=== PATIENT | female | born 1935 | race Hispanic/Latino ===

== ENCOUNTER 2018-09-03 02:20 | Observation (INO) | payer MEDICARE ==
[~2018-09-03] VITALS: Ht 154.9 cm; Wt 41.4 kg
[2018-09-03] VITALS (12 sets, daily range): BP systolic 132–196; BP diastolic 56–85
[~2018-09-03 02:20] MED LIST: ADULT ASPIRIN81 MG PO; CALCIUM600 M1 PO; CELEXA10 MG PO; HYDROCODON-ACE1 EA11 PO; IBUPROFEN400 MG PO; IRON325 M1 PO; NEXIUM40 MG PO; Z.0.AMBIEN5 MG PO; Z.0.FAMOTIDINE20 MG PO; Z.0.FOSAMAX70 MG PO; Z.0.HYDROCHLOROTHIA2 PO; Z.0.LISINOPRIL10 MG PO; Z.0.LOMOTIL TABLET1 PO; Z.0.ZOCOR80 MG PO; [UNRECOGNIZED DRUG - OTHER] PO
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
[2018-09-03] MEDS ORDERED: HYDROCODON-ACE1 EAC9 PO (04:13)
[2018-09-03] MEDS ORDERED: CIPRO500 MG PO (04:13)
[2018-09-03] MEDS ORDERED: ARICEPT5 MG PO (04:13)
[2018-09-03] MEDS: DEXTROSE 5%/0.45% SOD CHL 1,000 ML IV SCH (04:35)
[2018-09-03] MEDS ORDERED: HYDRALAZINE HCL 20 MG/ML VIAL IV PRN (05:15)
[2018-09-03 06:03] LABS: BASOPHILS % 0.2 % (0.0-1.0); EOSINOPHILS # (AUTO) 0.1 (0.0-0.4); EOSINOPHILS % 1.4 % (0.0-6.0); HEMATOCRIT 23.4 % (34.2-44.1); HEMOGLOBIN 7.9 g/dL (12.0-16.0); LYMPHOCYTES # (AUTO) 0.8 (1.0-3.2); LYMPHOCYTES % 14.8 % (18.0-39.1); MEAN CORPUSCULAR HEMOGLOBIN 30.2 pg (28-32); MEAN CORPUSCULAR HGB CONC 33.8 g/dL (31-35); MEAN CORPUSCULAR VOLUME 89.3 fL (81-99); MONOCYTES # (AUTO) 0.6 (0.2-0.8); MONOCYTES % 11.4 % (4.4-11.3); NEUTROPHILS # (AUTO) 3.6 (2.1-6.9); NEUTROPHILS % 71.6 % (38.7-80.0); PLATELET COUNT 76 x10e3/uL (140-360); RED BLOOD COUNT 2.62 x10e6/uL (3.6-5.1); RED CELL DISTRIBUTION WIDTH 14.6 % (11.7-14.4)
[2018-09-03] MEDS: HYDROCODONE/APAP 5MG-325MG TAB PO PRN ×3 (06:06→21:29)
[2018-09-03 06:36] LABS: ALBUMIN 3.2 g/dL (3.5-5.0); ANION GAP 9.6 mmol/L (8-16); CALCIUM 7.8 mg/dL (8.4-10.2); CREATININE, SERUM 1.26 mg/dL (0.57-1.11); POTASSIUM 4.6 mmol/L (3.5-5.1)
[2018-09-03 06:54] LABS: MAGNESIUM 1.9 MG/DL (1.3-2.1); PHOSPHORUS 2.6 MG/DL (2.3-4.7)
--- NOTE | 2018-09-03 07:42 | NUR ---
notified se vaughn about pt hgb of this am of 7.9 no orders received
[2018-09-03] MEDS: ASCORBIC ACID 500 MG TAB PO SCH ×2 (08:36→16:43)
[2018-09-03] MEDS: CITALOPRAM HYDROBROMIDE 20 MG TAB PO SCH (08:36)
[2018-09-03] MEDS: FERROUS SULFATE 325 MG TAB PO SCH (08:36)
[2018-09-03] MEDS: FAMOTIDINE 20 MG TAB PO SCH ×2 (08:36→16:43)
[2018-09-03] MEDS ORDERED: NON-FORMULARY MEDICATION (Citalopram Hydrobromide (Celexa) 10 MG) PO SCH (09:00)
[2018-09-03] MEDS: ACETAMINOPHEN 325 MG TAB PO PRN (10:14)
--- NOTE | 2018-09-03 10:30 | NUR ---
WOUND CARE CONSULTATION: THIS IS AN 82 YEAR OLD FEMALE PATIENT ADMITTED TO [facility] FOR S/P FALL, ANEMIA, AND ACUTE RENAL FAILURE. HEAD TO TOE SKIN ASSESSMENT PERFORMED. PATIENT HAS A LARGE BRUISE NOTED TO THE RIGHT HIP THAT EXTENDS TO THE BACK OF THE RIGHT LEG ALL THE WAY TO THE POSTERIOR PORTION OF THE RIGHT KNEE THAT PATIENT SUSTAINED FROM RECENT FALL; SKIN INTACT; NO OPEN AREAS. PATIENT HAS A BRUISE NOTED TO THE RIGHT SIDE OF THE BACK OF HER HEAD; NO OPEN AREAS. PATIENT HAS A BRUISE NOTE TO HER LEFT GREAT TOE THAT EXTENDS TO A PORTION OF THE LEFT DORSAL FOOT FROM A RECENT INGROWN TOENAIL BEING REMOVED PRIOR TO ADMIT; SKIN INTACT; NO OPEN AREAS. PATIENT HAS AN AREA OF 100% BLANCHABLE REDNESS NOTED TO THE COCCYX MEASURING 1.5X2CM, SKIN INTACT. LABS: WBC5.07 ALB3.2 TOTAL PROTEIN 6.4 RECOMMENDATIONS: -CONT THE ALTERNATING PRESSURE RELIEF MATTRESS. -APPLY BILATERAL HEEL PROTECTORS WITH PILLOW SUSPENSION. -TURN EVERY 2 HOURS AND PRN. -NURSING TO CLEAN COCCYX AREA OF BLANCHABLE REDNESS WITH NORMAL SALINE, PAT DRY, APPLY VENELEX AND ALLEVYN FOAM DRESSING; CHANGE DAILY AND PRN. THANK YOU FOR THIS WOUND CARE CONSULTATION. Addendum: 09/03/18 at 1039 by Catherine Marquez RN Amended: Links added.
[2018-09-03] MEDS ORDERED: BALSAM PERU/CASTOR OIL 5 GM OINT...G. TP PRN (11:00)
--- NOTE | 2018-09-03 11:12 | NUR ---
NOTIFIED NAVAL MARINE ENGINEER ROSALVA ABOUT PT C/O OF SEVERE LEFT CALF PAIN NEW ORDERS RECEIVED
[2018-09-03 11:15] LABS: BILIRUBIN,URINE NEGATIVE (NEGATIVE); CLARITY,URINE SL CLOUDY (CLEAR); COLOR,URINE YELLOW (YELLOW); KETONES,URINE NEGATIVE (NEGATIVE); LEUKOCYTE ESTERASE ,URINE NEGATIVE (NEGATIVE); NITRITE,URINE NEGATIVE (NEGATIVE); PROTEIN,URINE DIPSTICK NEGATIVE (NEGATIVE); URINE UROBILINOGEN 0.2 mg/dL (0.2 - 1)
[2018-09-03] MEDS ORDERED: CYCLOBENZAPRINE HCL 10 MG TAB PO ONE (11:20)
[2018-09-03 11:48] LABS: RBC,URINE 0-5 /HPF (0-5); WBC,URINE (MAN) 0-5 /HPF (0-5)
[2018-09-03 11:49] LABS: BACTERIA,URINE RARE /HPF; EPITHELIAL CELLS,URINE RARE /LPF
--- NOTE | 2018-09-03 12:02 | Consultation ---
DATE OF CONSULTATION: 09/03/2018 CHIEF COMPLAINT: Right hip pain. HISTORY OF PRESENT ILLNESS: The patient is a frail 82-year-old lady, who lives at home with her daughter and son-in-law. She was going down some stairs three days ago. She stumbled on the last stair. She initially had some complaints of pain, but these increased over the next few days. Her daughter noted that she had a bruise in the right proximal thigh over the next few days. She felt that this needed to be further investigated and took her to an emergency room in [place], [place]. She was found to have some kidney abnormalities and was transferred to [facility] for admission. Orthopedic consultation was requested for right hip pain. PAST MEDICAL HISTORY: She has a history of dementia, depression, osteoporosis, and anemia. PAST SURGICAL HISTORY: Previous surgeries include a carpal tunnel release, hemorrhoid surgery, a , and a neck surgery. MEDICATIONS: See medication reconciliation list. ALLERGIES: PENICILLIN. SOCIAL HISTORY: She lives with her daughter and son-in-law. She is . She does not smoke or drink. Prior to the fall, she walked independently in the house. PHYSICAL EXAMINATION: She is awake and alert. She does not appear to be in any acute distress. She answers questions appropriately. She appears thin and somewhat frail. She has a large bruise over the lateral aspect of her right thigh and hip. She has mild discomfort with passive range of motion of her right hip. Distal neurovascular exam is normal. She has no tension signs. LABORATORY STUDIES: Multiple x-rays of the pelvis, right femur and cervical spine show some arthritic changes and osteoporosis, but no acute fracture. IMPRESSION: Contusion, right hip. At this point, the patient is admitted for some concerns about renal failure. I would suggest that from an orthopedic standpoint, she can be mobilized with physical therapy. I explained to her daughter that she would benefit from using a walker for the next week or two until the symptoms improved. We will hold off from additional studies until we see how she does with physical therapy. Thank you for the consultation. Kevin Alvarenga MD DR/SID /[id number]
--- NOTE | 2018-09-03 12:56 | Diagnostic Imaging Report ---
Exam: Brain MRI without IV contrast History: Trauma, fall, and lesion Comparison studies: Head CT . Technique: Sagittal and axial T2 FS, axial DWI, axial T2*GRE, axial T1 FLAIR and axial coronal T2 FLAIR. Intravenous contrast: None Findings: Scalp: Normal in signal. No masses. Bone marrow: Normal in signal intensity. Ventricles: Moderate compensatory dilatation.. No hydrocephalus. Extra axial spaces: No mass, no fluid collection. Parenchyma: There is moderate generalized brain volume loss with a bilateral frontoparietal predominance with disproportionate volume loss along the anteromedial temporal lobes an hippocampi. A few scattered and mildly confluent T2 FLAIR hyperintense foci in the supratentorial white matter in the justina are nonspecific but most compatible with chronic microvascular ischemic changes. No mass, hemorrhage or acute ischemia. Suprasellar region: No abnormalities. Craniocervical junction: Patent foramen magnum. No Chiari malformation. Vessels: Normal flow-voids in the arteries and sinuses. Incidental findings: Right lens or placement for previous cataract surgery. IMPRESSION: No acute intracranial abnormalities. Chronic findings: 1. Mild to moderate microvascular ischemic changes. 2. Moderate generalized volume loss with a parietotemporal predominance and disproportionate volume loss along the anteromedial temporal lobes and hippocampi. Findings can be seen with Alzheimer's/dementia spectrum in the appropriate clinical setting. Signed by: Dr. Kevin Green M.D. on 09/03/2018 12:53 PM
--- NOTE | 2018-09-03 15:43 | NUR ---
CM SPOKE TO ANNE-MARIE, CHARGE NURSE REGARDING PATIENT DISCHARGE PLAN. PER MDR ROUNDS, PATIENT AMBULATORY PRIOR TO ADMISSION AND ABLE TO WITHSTAND 3 HOURS OF REHAB. ONCE PATIENT IS CLEARED MEDICALLY MD TO INITIATE INPATIENT REHAB EVALUATION. PATIENT WITH MCR A&B. INPATIENT REHAB RECOMMENDED BY PHYSICAL THERAPY.
--- NOTE | 2018-09-03 15:59 | NUR ---
ORTHOSTATIC V/S LAYING 175/72 57 HR SITTING 166/72 STANDING 132/60
--- NOTE | 2018-09-03 16:57 | NUR ---
Nutrition Intervention Note RD Recommendation(s) for Physician: -Rec to liberalize diet to regular Phos and K WNL, no need for renal restriction -Rec to downgrade diet texture to mechanical soft due to missing teeth -Rec Ensure Enlive BID to increase protein-calorie intake Plan of Care: RD following, monitoring for tolerance and adequacy, ONS rec Nutrition reason for involvement: MD consult underweight RD Assessment 09/03 - Visited pt in the room. Cvqbuqtwxtfrt-qs-wzr on bedside, who is unable to provide much history about pt. 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 Noted missing teeth. Per PCT, pt was eating well with >50% intake during lunch. Reviewed labs - K and Phos WNL. Pt doesn't to be on renal diet. Rec to liberalize to regular diet with Ensure Enlive BID. Will revisit tomorrow to see if I can get more information from the other family members. Principal Problems/Diagnoses: S/p fall, anemia, acute renal failure PMH: dementia, depression, osteoporosis, and anemia GI: abdomen soft, non-tender, round, flatus present Skin: skin intact Labs: (09/03) Na 133 L, BUN 38 H, Creatinine 1.26 H, Ca 7.8 L Meds: vitamin C, pepcid, dextrose Ht: 61in Wt: 91.19lb BMI: 17.2kg/m2 IBW: 105lb Malnutrition Evaluation (09/03/18) Unable to obtain hx. Will re-evaluate in the AM. Nutrition Prescription (Diet Order): renal diet Estimated Nutritional Needs: Calories: 1230 1435kcal(30-35kcal/kg/d) Weight used: CBW Protein: 41 62g(1-1.5g/kg/d) Weight used: CBW Diet Adequacy: Not meeting calorie needs, Meeting protein needs Diet Education Needs Assessment: Diet education not indicated. Nutrition Care Level: mod Nutrition Diagnosis: Underweight related to inadequate energy intake as evidenced by BMI at 17.2kg/m2. Goal: Patient will meet 75-100% of estimated needs by follow up Progress: Progressing Interventions: General healthful diet, Texture modified diet, Commercial beverage Monitoring/Evaluation: Total energy intake, Total protein intake, diet, Liquid Supplement, Weight change Signed: Zoey Nicole, MS, RD, LD
--- NOTE | 2018-09-03 20:20 | NUR ---
ORTHOSTATIC VITAL SIGNS SUPINE 168/70 P 54 SITTING 140/66 P 63 STANDING 132/56 P 61
[2018-09-03] MEDS: DONEPEZIL HCL 5 MG TAB PO SCH (21:25)
[2018-09-03] MEDS: SIMVASTATIN 80 MG TAB PO SCH (21:25)
[2018-09-04] VITALS (7 sets, daily range): BP systolic 134–172; BP diastolic 65–71
[2018-09-04] MEDS: DEXTROSE 5%/0.45% SOD CHL 1,000 ML IV SCH (01:07)
[2018-09-04] MEDS: ACETAMINOPHEN 325 MG TAB PO PRN (02:43)
[2018-09-04 03:49] LABS: BASOPHILS % 0.3 % (0.0-1.0); EOSINOPHILS % 1.3 % (0.0-6.0); HEMOGLOBIN 7.7 g/dL (12.0-16.0); LYMPHOCYTES # (AUTO) 0.8 (1.0-3.2); LYMPHOCYTES % 26.1 % (18.0-39.1); MEAN CORPUSCULAR HEMOGLOBIN 30.7 pg (28-32); MEAN CORPUSCULAR HGB CONC 33.8 g/dL (31-35); MEAN CORPUSCULAR VOLUME 90.8 fL (81-99); MONOCYTES # (AUTO) 0.4 (0.2-0.8); MONOCYTES % 11.1 % (4.4-11.3); NEUTROPHILS # (AUTO) 1.9 (2.1-6.9); NEUTROPHILS % 60.9 % (38.7-80.0); PLATELET COUNT 74 x10e3/uL (140-360); RED BLOOD COUNT 2.51 x10e6/uL (3.6-5.1); RED CELL DISTRIBUTION WIDTH 14.6 % (11.7-14.4)
[2018-09-04 03:52] LABS: HEMATOCRIT 22.8 % (34.2-44.1)
[2018-09-04 04:10] LABS: ANION GAP 10.5 mmol/L (8-16); CALCIUM 7.9 mg/dL (8.4-10.2); CREATININE, SERUM 1.19 mg/dL (0.57-1.11); POTASSIUM 4.5 mmol/L (3.5-5.1)
[2018-09-04] MEDS ORDERED: MORPHINE SULFATE 2 MG/ML SYR 1ML IV PRN (04:15)
[2018-09-04 04:32] LABS: FREE T4 (FREE THYROXINE) 0.91 ng/dL (0.8-1.8); THYROID STIMULATING HORMONE 0.866 uIU/mL (0.350-4.940)
--- NOTE | 2018-09-04 07:24 | NUR ---
REPORT GIVEN TO ONCOMING NURSE.WALKING ROUNDS MADE.PT RESTING IN BED WITH NO S/S OF DISTRESS.BED ALARM ACTIVATED.
[2018-09-04] MEDS: FAMOTIDINE 20 MG TAB PO SCH ×2 (08:30→17:30)
[2018-09-04] MEDS ORDERED: BALSAM PERU/CASTOR OIL 5 GM OINT...G. TP SCH ×2 (09:00→21:00)
[2018-09-04] MEDS: FERROUS SULFATE 325 MG TAB PO SCH (09:40)
[2018-09-04] MEDS: CITALOPRAM HYDROBROMIDE 20 MG TAB PO SCH (09:40)
[2018-09-04] MEDS: ASCORBIC ACID 500 MG TAB PO SCH ×2 (09:40→17:30)
[2018-09-04] MEDS: HYDROCODONE/APAP 5MG-325MG TAB PO PRN ×2 (09:59→14:18)
--- NOTE | 2018-09-04 14:40 | NUR ---
PT ATTEMPTING TO GET OOB, ASSISTED BACK TO BED, REPOSITIONED, CALL LIGHT WITHIN REACH, BED ALARM ON
--- NOTE | 2018-09-04 16:38 | NUR ---
SPOKE WITH DAUGHTER MELBA GOT CHOICE FOR [facility], STARTED MOT, FAXED CLINICALS PATIENT TO BE DISCHARGED TOMORROW MORNING TO REHAB.
[2018-09-04] MEDS: DONEPEZIL HCL 5 MG TAB PO SCH (20:20)
[2018-09-04] MEDS: SIMVASTATIN 80 MG TAB PO SCH (20:20)
[2018-09-05] VITALS: BP 156/68
--- NOTE | 2018-09-05 | NUR ---
0000: Patient started yelling and trying multiple times to get out of bed, patient was assured to calm down, patient stated she is anxious and wants to leave hospital, patient son was called and spoke to patient but patient continued to be agitated, patient is at risk for fall, MISSILE INSPECTOR Pasha was made aware of patient status and 0.25mg of ativan was ordered, patient received it at 0127, patient calmed down and rested.
[2018-09-05] MEDS ORDERED: LORAZEPAM INJ 2 MG/ML VIAL IV ONE (00:30)
[2018-09-05] MEDS: HYDROCODONE/APAP 5MG-325MG TAB PO PRN (00:31)
--- NOTE | 2018-09-05 03:00 | NUR ---
patient rounded and stable.
[2018-09-05 04:00] VITALS: BP 163/75
--- NOTE | 2018-09-05 06:00 | NUR ---
Dr. Maldonado was made aware by ER Doctor and made aware of the status of patient
[2018-09-05 06:13] LABS: BASOPHILS % 0.3 % (0.0-1.0); EOSINOPHILS # (AUTO) 0.1 (0.0-0.4); HEMOGLOBIN 7.3 g/dL (12.0-16.0); LYMPHOCYTES # (AUTO) 0.7 (1.0-3.2); LYMPHOCYTES % 24.8 % (18.0-39.1); MEAN CORPUSCULAR HEMOGLOBIN 29.8 pg (28-32); MEAN CORPUSCULAR VOLUME 90.2 fL (81-99); MONOCYTES # (AUTO) 0.3 (0.2-0.8); MONOCYTES % 9.9 % (4.4-11.3); NEUTROPHILS # (AUTO) 1.8 (2.1-6.9); NEUTROPHILS % 62.7 % (38.7-80.0); PLATELET COUNT 80 x10e3/uL (140-360); RED BLOOD COUNT 2.45 x10e6/uL (3.6-5.1); RED CELL DISTRIBUTION WIDTH 14.6 % (11.7-14.4)
[2018-09-05 06:24] LABS: HEMATOCRIT 22.1 % (34.2-44.1)
[2018-09-05 06:37] LABS: ANION GAP 9.5 mmol/L (8-16); CALCIUM 7.9 mg/dL (8.4-10.2); CREATININE, SERUM 1.19 mg/dL (0.57-1.11); POTASSIUM 4.5 mmol/L (3.5-5.1)
[2018-09-05] MEDS: DEXTROSE 5%/0.45% SOD CHL 1,000 ML IV SCH (06:39)
--- NOTE | 2018-09-05 06:49 | NUR ---
SAM Rockwell was informed about hmcrt levels and ordered to repeat h and h at 1pm
--- NOTE | 2018-09-05 07:25 | NUR ---
0700: Bed side report given to day nurse, patient verbal, denied pain at this time.
--- NOTE | 2018-09-05 07:58 | NUR ---
PT ACCEPTED TO [facility] IN [place], MOT COMPLETED AND GIVEN TO NURSE FOR TRANSFER.
[2018-09-05] MEDS: FAMOTIDINE 20 MG TAB PO SCH (08:30)
[2018-09-05] MEDS: CITALOPRAM HYDROBROMIDE 20 MG TAB PO SCH (09:00)
[2018-09-05] MEDS: FERROUS SULFATE 325 MG TAB PO SCH (09:00)
[2018-09-05] MEDS: ASCORBIC ACID 500 MG TAB PO SCH (09:00)
--- NOTE | 2018-09-05 09:15 | NUR ---
ANDREW SALES ENGINEER WITH MD FINNEGAN INTO SEE PT, DISCUSSED POC
[2018-09-05] MEDS ORDERED: HYDRALAZIN20 MG/1 ML IV (09:22)
[2018-09-05] MEDS ORDERED: FAMOTIDINE20 MG PO (09:22)
[2018-09-05] MEDS ORDERED: ACETAMINOPHEN325 M1 PO (09:22)
[2018-09-05] MEDS ORDERED: ASCORBIC ACID500 MG PO (09:22)
--- NOTE | 2018-09-05 09:24 | NUR ---
WITH STANDBY ASSIST, PT OOB WITH USE OF WALKER AND PCT AT SIDE, AMBULATED TO BR, VOIDING WITHOUT DIFFICULTY, STANDBY ASSIST BACK TO BED, BREAKFAST TRAY SET UP , CALL LIGHT WITHIN REACH, BED ALARM ON
[2018-09-05 09:29] VITALS: BP 128/74
[2018-09-05 09:36] VITALS: BP 128/74
--- NOTE | 2018-09-05 10:30 | Discharge Summary ---
PERTINENT HISTORY AND PHYSICAL FINDINGS: The patient is an 82-year-old female with a past medical history of dementia, who was brought to the emergency department by her son on Friday after she fell on Friday. After the fall, the son did not notice any bruising, so he did not worry about it. However, on Friday, he noticed a large bruise on her right hip and thigh. The patient had no family at the bedside on admission, therefore the history of present illness and past medical history was obtained from the medical record. PAST MEDICAL HISTORY: Hyperlipidemia, dementia, depression, arthritis, osteoporosis, and anemia. PAST SURGICAL HISTORY: Carpal tunnel release, , hysterectomy, hemorrhoidectomy. FAMILY HISTORY: Noncontributory. SOCIAL HISTORY: Noncontributory. ALLERGIES: PENICILLIN. ADMITTING DIAGNOSES: 1. Fall. 2. Dementia. 3. Depression. 4. Anemia. 5. Hyperlipidemia. 6. Underweight. DISCHARGE DIAGNOSES: 1. Fall. 2. Dementia. 3. Depression. 4. Anemia. 5. Hyperlipidemia. 6. Underweight. CONSULTATIONS: Dr. Kevin Alvarenga with Orthopedics. According Dr. Alvarenga's note, the patient was going down some stairs three days prior to admission and she stumbled on the last stair. Impression included contusion of the right hip. Recommendations include mobilizing with physical therapy. The patient would benefit from a walker for the next week or two until the symptoms improve. Regarding her diagnostic studies, her hemoglobin has shown a downward trend of 7.9 to 7.7 and now 7.3. Today, she may require a blood transfusion at the inpatient rehabilitation center she is going to be. On admission, BUN 38, creatinine 1.26, GFR 40. Today, BUN 25, creatinine 1.19 and GFR 43, and the patient has been receiving D5 and half-normal saline at 50 mL an hour. Urine culture was without growth. Brain MRI showed [id number]-fk-[id number] microvascular ischemic changes and moderate generalized volume loss. Home medications of Aricept for dementia, Celexa for depression, ferrous sulfate for anemia were all restarted as well as simvastatin for hyperlipidemia. Bilateral carotid Doppler ultrasound was without significant carotid stenosis. Bilateral lower extremity venous Doppler ultrasound was negative for DVT. Cervical spine x-ray showed no displaced fractures, grade 1 anterolisthesis of C6 relative to C7, which could be degenerative in etiology. Right hip x-ray showed no acute findings. Right femur two-view x-ray showed no acute findings. Head CT showed no evidence of acute intracranial abnormality. Today on telemetry, heart rate of 55. Physical therapy has recommended inpatient rehab. The patient will transfer to [facility] Inpatient Rehabilitation Unit. No change in physical examination. Continue regular diet. Activity level as tolerated with assistance. The patient to follow up with her PCP, Dr. Marin, after her discharge from [facility] Inpatient Rehab. Dictated by Gordy Zuluaga NP Sven Ramirez MD HWP/MODL /[id number]
--- NOTE | 2018-09-05 10:37 | NUR ---
PT AMBULATING IN HALLWAY WITH USE OF WALKER, PHYSICAL THERAPIST AT SIDE
--- NOTE | 2018-09-05 11:34 | NUR ---
[phone] DAUGHTER AWARE OF TRANSFER,
[2018-09-05 13:11] VITALS: BP 154/68
[2018-09-05 13:41] LABS: BASOPHILS % 0.3 % (0.0-1.0); HEMATOCRIT 23.6 % (34.2-44.1); HEMOGLOBIN 7.8 g/dL (12.0-16.0); LYMPHOCYTES # (AUTO) 0.6 (1.0-3.2); MEAN CORPUSCULAR HEMOGLOBIN 30.1 pg (28-32); MEAN CORPUSCULAR HGB CONC 33.1 g/dL (31-35); MEAN CORPUSCULAR VOLUME 91.1 fL (81-99); MONOCYTES # (AUTO) 0.3 (0.2-0.8); MONOCYTES % 10.3 % (4.4-11.3); NEUTROPHILS # (AUTO) 2.2 (2.1-6.9); NEUTROPHILS % 70.1 % (38.7-80.0); PLATELET COUNT 99 x10e3/uL (140-360); RED BLOOD COUNT 2.59 x10e6/uL (3.6-5.1); RED CELL DISTRIBUTION WIDTH 14.7 % (11.7-14.4)
== END 2018-09-05 14:33 ==
LOC: MED/SURG 03:33
PROVIDERS: ADMIT Internal Medicine; ATTEND Internal Medicine
DX: M25.551 Pain in right hip (principal); F03.90 Unspecified dementia, unspecified severity, without behavioral disturbance, psychotic disturbance, mood disturbance, and anxiety; F32.9 Major depressive disorder, single episode, unspecified; E78.5 Hyperlipidemia, unspecified; R63.6 Underweight; Z68.1 Body mass index [BMI] 19.9 or less, adult; W10.8XXA Fall (on) (from) other stairs and steps, initial encounter; Y93.9 Activity, unspecified; Y92.018 Other place in single-family (private) house as the place of occurrence of the external cause; M81.0 Age-related osteoporosis without current pathological fracture
CPT/HCPCS: 36415 ×3; 70551; 80048 ×2; 80053; 80061; 81001; 83036; 83735; 84100; 84439; 84443; 85025 ×3; 87086; 93880; 93970; 97116 ×3; 97139 ×3; 97161; G0378 ×3; J2060; J2270

== ENCOUNTER 2018-10-22 10:46 | Inpatient (IN) | payer MEDICARE ==
[~2018-10-22] VITALS: Ht 154.9 cm; Wt 41.7 kg
[~2018-10-22 10:46] MED LIST changes: +ACETAMINOPHEN325 M1 PO; +ARICEPT5 MG PO; +ASCORBIC ACID500 MG PO; +CIPRO500 MG PO; +FAMOTIDINE20 MG PO; +HYDRALAZIN20 MG/1 ML IV; +HYDROCODON-ACE1 EAC9 PO
[2018-10-22] MEDS ORDERED: CEFTRIAXONE SOD 1 GM/NS 50 ML 50 ML IV ONE (12:30)
[2018-10-22] MEDS ORDERED: ONDANSETRON HCL INJ 2MG/ML 2ML 2 MG/ML VIAL IV PRN (12:45)
[2018-10-22] MEDS ORDERED: DEXTROSE 50% SYRINGE 50 ML IV PRN (12:45)
--- NOTE | 2018-10-22 13:26 | Diagnostic Imaging Report ---
EXAMINATION: CHEST SINGLE (PORTABLE) INDICATION: Bradycardia COMPARISON: None FINDINGS: LINES/TUBES:EKG leads overlie the chest. LUNGS:The lungs are well-inflated. No focal consolidation or pulmonary edema. PLEURA:No pleural effusion or pneumothorax. MEDIASTINUM:The cardiomediastinal silhouette appears normal in size and shape. BONES/SOFT TISSUES:Status post multiple left apical anterior rib resections. ABDOMEN:No free air under the diaphragm. IMPRESSION: No focal pneumonia or pulmonary edema. Status post left apical anterior rib resections. Signed by: Ej Sofia MD on 10/22/2018 1:23 PM
[2018-10-22 14:13] LABS: BASOPHILS % 0.3 % (0.0-1.0); EOSINOPHILS % 1.4 % (0.0-6.0); HEMATOCRIT 30.9 % (34.2-44.1); HEMOGLOBIN 10.2 g/dL (12.0-16.0); LYMPHOCYTES # (AUTO) 0.8 (1.0-3.2); LYMPHOCYTES % 26.4 % (18.0-39.1); MEAN CORPUSCULAR HEMOGLOBIN 30.8 pg (28-32); MEAN CORPUSCULAR VOLUME 93.4 fL (81-99); MONOCYTES # (AUTO) 0.2 (0.2-0.8); MONOCYTES % 6.3 % (4.4-11.3); NEUTROPHILS # (AUTO) 1.9 (2.1-6.9); NEUTROPHILS % 65.3 % (38.7-80.0); RED BLOOD COUNT 3.31 x10e6/uL (3.6-5.1); RED CELL DISTRIBUTION WIDTH 14.6 % (11.7-14.4)
[2018-10-22 14:14] LABS: PLATELET COUNT 96 x10e3/uL (140-360)
[2018-10-22 14:18] LABS: BILIRUBIN,URINE NEGATIVE (NEGATIVE); CLARITY,URINE CLEAR (CLEAR); COLOR,URINE YELLOW (YELLOW); KETONES,URINE NEGATIVE (NEGATIVE); LEUKOCYTE ESTERASE ,URINE NEGATIVE (NEGATIVE); NITRITE,URINE NEGATIVE (NEGATIVE); PROTEIN,URINE DIPSTICK NEGATIVE (NEGATIVE); URINE UROBILINOGEN 0.2 mg/dL (0.2 - 1)
[2018-10-22 14:19] LABS: INR 1.01; PROTHROMBIN TIME 13.8 seconds (11.9-14.5)
[2018-10-22 14:20] LABS: PARTIAL THROMBOPLASTIN TIME 30.1 seconds (23.8-35.5)
[2018-10-22 14:28] LABS: ALBUMIN 3.8 g/dL (3.5-5.0); ALBUMIN/GLOBULIN RATIO 1.1 (0.8-2.0); CALCIUM 9.1 mg/dL (8.4-10.2); CREATININE, SERUM 1.15 mg/dL (0.57-1.11)
[2018-10-22 14:31] LABS: BACTERIA,URINE RARE /HPF; EPITHELIAL CELLS,URINE FEW /LPF; RBC,URINE 0-5 /HPF (0-5)
[2018-10-22 14:34] LABS: CREATINE KINASE MB 1.7 ng/mL (0-5.0)
[2018-10-22] MEDS: FAMOTIDINE 20 MG/2 ML VIAL IV SCH ×2 (15:08→23:03)
--- NOTE | 2018-10-22 15:50 | NUR ---
Received patient via wheelchair from ER. Accompanied by son. AAOX2 to person, place. Oriented to time. Respirations even and unlabored. Tele #[phone]. Denies pain. Oriented patient and son to room. Instructed to use call light for assistance. Side rails upx2, call light within reach, bed alarm on.
[2018-10-22] MEDS ORDERED: NORCO 5-325 TA1 EACH PO (15:58)
[2018-10-22 16:01] VITALS: BP_SYST 154; BP_SYST 189; BP_DIAS 60; BP_DIAS 99
--- NOTE | 2018-10-22 16:01 | Consultation ---
DATE OF CONSULTATION: 10/22/2018 Cardiology Consultation CONSULTING PHYSICIAN: Perez James MD, Interventional Cardiology. REASON FOR CONSULTATION: Bradycardia. HISTORY OF PRESENT ILLNESS: Ms. Angel is a pleasant 82-year-old woman with history of dementia, depression, osteoporosis, and anemia, who had a recent Hospital ER visit with fall, which was unwitnessed with resultant right hip contusion. She has memory issues limiting her history taking, however, family member is at bedside and assists with part of HPI. The patient has had occasional episodes of lightheadedness, but denies chest pain, shortness of breath, or known loss of consciousness. She was noted to have marked bradycardia into the 30s today while visiting with her primary care provider. It was therefore decided to transfer patient via the ER to the hospital for further workup. On telemetry, she has been observed to have marked sinus bradycardia in the 50s with frequent PACs. EKG is remarkable for similar findings of sinus bradycardia, frequent PACs and poor R-wave progression in precordial leads. She keeps perseverating about wanting to travel to [place], but otherwise voices no complaints. REVIEW OF SYSTEMS: A 12-system review negative except for as noted above. PAST MEDICAL HISTORY: As per HPI significant for dementia, depression, osteoporosis, anemia. SOCIAL HISTORY: No active smoking, alcohol, or drugs. FAMILY HISTORY: Noncontributory, has family support. PHYSICAL EXAMINATION: VITAL SIGNS: Heart rate 69, blood pressure 134/80, respiratory rate 16, O2 saturation 99%, BMI 17.1. GENERAL: In no acute distress. Alert, active, oriented x3. NECK: No JVD or carotid bruit. CHEST: Clear to auscultation. CARDIOVASCULAR: Regular rate and rhythm, normal S1, S2, no S3 or S4. No murmurs or rubs, bradycardic with occasional extensive compensatory pauses. ABDOMEN: Soft and nontender. Bowel sounds positive. EXTREMITIES: No cyanosis, clubbing, or edema. Warm distal extremities. CARDIOVASCULAR MEDICATIONS: Reviewed, it seems the patient was recently initiated on carvedilol 3.125 mg, which patient was taking once daily since discharge from rehab, this has been discontinued. Aspirin 81 mg daily. Insulin lispro alternating her medications. LABORATORY DATA: Studies reviewed. EKG described above. Lab work are ordered, still pending. ASSESSMENT: 1. An 82-year-old woman presents with sinus bradycardia and frequent PACs in this setting. The patient has had occasional episodes of lightheadedness and had a recent fall, which was unwitnessed. Given dementia, unclear if it was a mechanical fall or related to syncopal spell. 2. Dementia, depression, osteoporosis, and anemia. RECOMMENDTIONS: 1. Keep quality assurance monitor final in place. 2. Obtain echocardiogram. 3. Avoid chronotropic negative medications. I have discontinued Provigil, observe off this med. 4. Discussed with the patient and family members further options, which may include if no definitive clarity within the next 24 to 48 hours with monitoring, consideration of outpatient telemetry monitoring for two weeks, given patient's behavioral issues associated to dementia might be somewhat complex for patient to maintain in place versus an implantable loop recorder implant to closely monitor further. Further recommendations depending on lab work, echocardiogram and telemetry results overnight. MD RAJANI Francisco/SID /[id number]
[2018-10-22 16:10] VITALS: BP 156/58
[2018-10-22] MEDS: INSULIN LISPRO 100 UNIT/1 ML 3ML VIAL SQ SCH ×2 (16:30→20:23)
[2018-10-22 16:42] VITALS: BP 156/58
[2018-10-22] MEDS ORDERED: GABAPENTIN100 MG PO (16:43)
[2018-10-22] MEDS ORDERED: PNEUMOCOCCAL VACCINE POLYVALENT 23 MCG/0.5 ML VIAL IM ONE (17:00)
[2018-10-22] MEDS: HYDROCODONE/APAP 5MG-325MG TAB PO PRN ×2 (17:42→21:56)
--- NOTE | 2018-10-22 19:00 | NUR ---
received report from day nurse. patient is resting comfortably in bed. bed is in lowest position and call holman is within reach. will continue to monitor patient.
--- NOTE | 2018-10-22 19:04 | NUR ---
Report given to oncoming nurse of patient's status. Resting in bed, side rails upx2, call light within reach , bed alarm on. No s/s of acute distress noted.
[2018-10-22] MEDS: DONEPEZIL HCL 5 MG TAB PO SCH (20:23)
[2018-10-22] MEDS: SIMVASTATIN 80 MG TAB PO SCH (20:23)
[2018-10-22] MEDS: GABAPENTIN 100 MG CAP PO SCH (20:23)
[2018-10-22 21:03] VITALS: BP 140/53
[2018-10-23] VITALS (8 sets, daily range): BP systolic 135–175; BP diastolic 62–88
--- NOTE | 2018-10-23 04:50 | History and Physical ---
REASON FOR CONSULT: Constipation and diarrhea at home. HISTORY OF PRESENTING ILLNESS: An 82 years old, very pleasant female, who speaks Czech only. I derived the history from the patient's son, who is bilingual, he was able to translate in Malay between us. Apparently, GI is being consulted because she has had constipation and diarrhea at home. She got admitted at this time with symptomatic bradycardia. Supervisor Cell Room, Dr. Gongora is following the patient. The patient has been seen and evaluated by Dr. Killian, my associate a few years ago for evaluation of anemia. Apparently, the patient has had a bidirectional endoscopy that was nonconclusive. It was determined that the patient might be having anemia of chronic disease. She continues to maintain her baseline hemoglobin around 10. At home, she has constipation that runs for couple of 2-3 days followed by several bouts of diarrhea. This kind of bowel habit has been going on for couple of years. GI is being consulted to evaluate her chronic GI symptoms. REVIEW OF SYSTEMS: As per HPI. PAST MEDICAL HISTORY: Dementia, depression, osteoporosis, and chronic anemia. PAST SURGICAL HISTORY: Upper endoscopy and colonoscopy in the past. FAMILY HISTORY: Noncontributory given her advanced age. SOCIAL HISTORY: No smoking, alcohol, or any illicit drug use. ALLERGIES: PENICILLIN. HOME MEDICATIONS: Calcium, citalopram, donepezil, Nexium, gabapentin, Tylenol No. 3, and simvastatin. Inpatient medications, reviewed as per MAR. PHYSICAL EXAMINATION: VITAL SIGNS: Temperature 96.2, pulse 50, respiration 16, blood pressure 140/53, and oxygen saturation 99% on room air. GENERAL: Not in any acute distress, elderly frail. HEENT: Oral mucosa is moist. Anicteric sclerae. CVS: S1, S2 with a 3/6 flow murmur at the apex. LUNGS: Bilaterally grossly clear. ABDOMEN: Soft, nondistended, and nontender. No palpable mass or hernia. Positive bowel sounds. EXTREMITIES: Warm. No leg edema. LABORATORY DATA: WBC 2.88, hemoglobin 10.2, hematocrit 30.9, MCV 93.4, and platelet count 96. Sodium 139, potassium 5.0, chloride 106, bicarb 23, BUN 26, and creatinine 1.15. Liver enzymes normal. PT 13.8, INR 1.01. Urinalysis clear. Chest x-ray, 1. No focal pneumonia or pulmonary edema. 2. Status post left apical anterior rib resection. IMPRESSION: Constipation followed by diarrhea. These symptoms are typical of spurious diarrhea (overflow diarrhea). PLAN: The patient's main problem is constipation. Therefore, she should be on bowel regimen every day. I advised the patient's son to give her Metamucil or Benefiber every night and stool softener as needed. Rest of the care as per primary team. Deon Bee MD SA/SID /[id number]
[2018-10-23 05:27] LABS: BASOPHILS % 0.5 % (0.0-1.0); EOSINOPHILS # (AUTO) 0.1 (0.0-0.4); EOSINOPHILS % 2.3 % (0.0-6.0); LYMPHOCYTES % 26.6 % (18.0-39.1); MEAN CORPUSCULAR HEMOGLOBIN 29.8 pg (28-32); MONOCYTES # (AUTO) 0.4 (0.2-0.8); MONOCYTES % 11.1 % (4.4-11.3); NEUTROPHILS # (AUTO) 2.3 (2.1-6.9); NEUTROPHILS % 59.2 % (38.7-80.0); PLATELET COUNT 79 x10e3/uL (140-360); RED BLOOD COUNT 3.02 x10e6/uL (3.6-5.1); RED CELL DISTRIBUTION WIDTH 14.4 % (11.7-14.4)
[2018-10-23 05:51] LABS: CREATINE KINASE MB 1.8 ng/mL (0-5.0)
[2018-10-23 06:06] LABS: ALBUMIN 3.2 g/dL (3.5-5.0); ALBUMIN/GLOBULIN RATIO 1.1 (0.8-2.0); ANION GAP 12.2 mmol/L (8-16); CALCIUM 8.7 mg/dL (8.4-10.2); CHOL/HDL RATIO 2.5 (3.0-3.6); CREATININE, SERUM 1.13 mg/dL (0.57-1.11); POTASSIUM 4.2 mmol/L (3.5-5.1)
--- NOTE | 2018-10-23 06:50 | NUR ---
report given to day nurse. patient is resting comfortably in bed. bed is in lowest position and call light is within reach.
[2018-10-23] MEDS: INSULIN LISPRO 100 UNIT/1 ML 3ML VIAL SQ SCH ×4 (07:30→20:38)
[2018-10-23] MEDS ORDERED: NON-FORMULARY MEDICATION (Citalopram Hydrobromide (Celexa) 10 MG) PO SCH (09:00)
[2018-10-23] MEDS ORDERED: NON-FORMULARY MEDICATION (Calcium Carbonate (Calcium) 1 TAB) PO SCH (09:00)
[2018-10-23] MEDS: CALCIUM CARBONATE 500 MG CHEWABLE TABS PO SCH (09:04)
[2018-10-23] MEDS: CITALOPRAM HYDROBROMIDE 20 MG TAB PO SCH (09:04)
[2018-10-23] MEDS: PANTOPRAZOLE SOD 40 MG TABEC PO SCH (09:04)
[2018-10-23] MEDS: GABAPENTIN 100 MG CAP PO SCH ×3 (09:04→20:38)
[2018-10-23] MEDS: ASPIRIN 81 MG ENTERIC COATED PO SCH (09:04)
[2018-10-23 10:09] LABS: % IRON SATURATION 16 % (15-50); IRON 49 ug/dL (50-170); TOTAL IRON BINDING CAPACITY 315 ug/dL (261-478); TRANSFERRIN 225 mg/dL (180-382)
[2018-10-23 10:44] LABS: FOLATE 7.8 ng/mL (7.0-15.4)
[2018-10-23] MEDS: HYDROCODONE/APAP 5MG-325MG TAB PO PRN ×2 (11:00→20:38)
--- NOTE | 2018-10-23 11:56 | Progress Note ---
DATE: 10/23/2018 Cardiology Progress Note SUBJECTIVE: Denies any chest pain or shortness of breath. However, has had episodes of lightheadedness. Remains significantly bradycardic off any chronotropic negative medications. Heart rate in the 40s, 42 lowest, and remains while awake in the 40s with frequent PVCs. OBJECTIVE: VITAL SIGNS: Temperature 97.7, heart rate currently 48, respiratory rate 17, blood pressure 164/68, O2 saturation 99% on room air. GENERAL: In no acute distress, alert. NECK: No JVD. CHEST: Clear to auscultation. CARDIOVASCULAR: Regular rate and rhythm, normal S1 and S2. Bradycardic with occasional compensatory pauses. ABDOMEN: Soft, nontender. EXTREMITIES: No edema. CARDIOVASCULAR MEDICATIONS: Reviewed. Aspirin 81 mg daily, simvastatin 80 mg at bedtime. LABORATORY STUDIES: Reviewed. White blood cells 3.8, hemoglobin 9, platelets 79. Sodium 133, potassium 4.2, chloride 104, bicarbonate 21, BUN 30, creatinine 1.1, glucose 78, calcium 8.7, total bilirubin 0.7, AST is 22, ALT 11, alkaline phosphatase 38. Serial troponins negative x3. Total protein 6.1, albumin 3.2, triglycerides 84, total cholesterol 116, LDL 52, HDL 47, TSH 0.5. ASSESSMENT: 1. Marked sinus bradycardia, symptomatic and complicated by frequent premature ventricular contractions and the patient is status post recent fall with suspected syncopal etiology (arrhythmogenic). 2. Dementia. 3. Depression, osteoporosis, anemia and thrombocytopenia. RECOMMENDATIONS: 1. EP consultation for consideration of pacemaker implant. 2. Continue to avoid chronotropic negative medications for now. MD RAJANI Francisco/SID /[id number]
--- NOTE | 2018-10-23 15:05 | NUR ---
IN SEP SHE WAS HERE AND WENT TO [facility] IN [place], STATES WAS TOLD THERE IS A MEDICARE SUPPLEMENT PROGRAM
--- NOTE | 2018-10-23 15:57 | History and Physical ---
PRIMARY CARE PHYSICIAN: Dr. Prashanth Marin. CONSULTANTS: 1. Dr. Temo Dove. 2. Dr. Perez James. CHIEF COMPLAINT: Status post near fall, near syncopal episode with bradycardia. HISTORY OF PRESENT ILLNESS: This is an 82-year-old female with a previous fall per history. The patient basically came in this time after seen Dr. Marin, primary care physician in the office. The patient has heart rate in the 40, 50. The patient with near fall, near passing out. The patient brought in the emergency room, heart rate in the 40. The patient is otherwise stable at this time. She is pending to have another workup with Dr. Gongora. The EKG showed that the patient has abnormal EKG with left axis deviation and also sinus bradycardia with supraventricular complexes. The patient is otherwise stable at this time. The patient was admitted back in October 23, 2018. At that time, the patient with bradycardia as well. The patient also had a fall with right hip contusion. She was having pain now. The patient has osteoarthritis. EKG at that time shown sinus bradycardia with frequent PAC and poor R-wave progression, precordial leads. The patient have recurrent symptoms. PAST MEDICAL HISTORY: Vascular dementia, depression, osteoporosis, chronic anemia, recurrent fall with bradycardia, dyslipidemia, osteoarthritis. PAST SURGICAL HISTORY: Carpal tunnel surgery, , hysterectomy, hemorrhoidectomy. The patient is underweight. SOCIAL HISTORY: The patient lives at home with her family. ALLERGIES: TO PENICILLIN. HOME MEDICATIONS: List is reviewed. REVIEW OF SYSTEMS: Near fall, dizziness on standing. PHYSICAL EXAMINATION: VITAL SIGNS: Temperature is 98, blood pressure 135/62, pulse rate is 48, respiration 18. GENERAL: The patient is not in acute distress, she is awake. HEENT: Normocephalic, atraumatic. Pupils reactive. Anicteric. NECK: Supple, grossly. PULMONARY: Diminished breath sounds. CARDIOVASCULAR: Bradycardia. ABDOMEN: Soft, cachexia. EXTREMITIES: No cyanosis or edema. NEUROLOGIC: No gross focal deficit. Moving all extremities. Baseline chronic dementia. LABORATORY DATA: WBC is 2.8, hemoglobin is 9, hematocrit 29, platelet is 79. Chemistry; sodium is 138, potassium 4.2, chloride 104, bicarb 21, BUN is 30, creatinine 1.1, glucose is 78. TSH is 0.51. Troponin are negative. Liver enzymes unremarkable. Albumin is 3.2, total protein 6.1. Imaging tests; chest x-ray is otherwise unremarkable. IMPRESSION: 1. Recurrent fall with injury, but no sign of bone fracture. 2. Bradycardia could be secondary to sick sinus syndrome versus heart block. 3. Multiple chronic baseline problems. PLAN: The patient will be admitted on telemetry. The patient may need pacemaker with recurrent fall. On home medication. Avoid beta magui. Resume other home medication, insulin sliding scale coverage. We will monitor the patient closely. Discussed with Dr. Gongora already. He will review the telemetry. MD DAYO Sellers/SID /[id number]
[2018-10-23] MEDS ORDERED: FENTANYL CITRATE/PF 100MCG/2 ML INJ ONE (17:29)
[2018-10-23] MEDS ORDERED: MIDAZOLAM HCL 2 MG/2 ML VIAL ONE (17:29)
[2018-10-23] MEDS ORDERED: BACITRACIN 50,000 UNIT VIAL ONE (17:30)
[2018-10-23] MEDS ORDERED: LIDOCAINE HCL 2% LOCAL 20 ML VIAL ONE (17:30)
--- NOTE | 2018-10-23 17:30 | NUR ---
patient down to [facility]orer [facility] for pacemaker at this time.
[2018-10-23] MEDS ORDERED: VANCOMYCIN 1GM/NS 250 ML 250 ML ONE (17:31)
[2018-10-23] MEDS ORDERED: SODIUM CHLORIDE 0.9% 1000ML 2,000 ML ONE (17:31)
[2018-10-23] MEDS ORDERED: SODIUM CHLORIDE 0.9% 1000ML 1,000 ML ONE (17:44)
--- NOTE | 2018-10-23 20:03 | Diagnostic Imaging Report ---
Examination: Single AP view of the chest. COMPARISON: None. INDICATION: Pacemaker DISCUSSION: Lines/tubes: 2-lead pacemaker placed. Lungs: The lungs are well inflated and clear. No pneumonia or pulmonary edema. Pleura: No pleural effusion or pneumothorax. Heart and mediastinum: The heart and the mediastinum are unremarkable. Bones and soft tissues: No acute bony abnormalities. IMPRESSION: No acute cardiopulmonary abnormalities. Signed by: Dr. Toan Gay M.D. on 10/23/2018 8:00 PM
[2018-10-23] MEDS: DONEPEZIL HCL 5 MG TAB PO SCH (20:38)
[2018-10-23] MEDS: SIMVASTATIN 80 MG TAB PO SCH (20:38)
[2018-10-24] VITALS: BP 120/61
--- NOTE | 2018-10-24 00:15 | Progress Note ---
DATE: 10/23/2018 SUBJECTIVE: The patient has had pacemaker placed today. She was kept n.p.o. all day. She has been allowed ADA diet after pacemaker placement today. No BM today. REVIEW OF SYSTEMS: GENERAL: Generalized weakness and lethargy, no fever or chills. CVS: No chest pain or palpitation. RESPIRATORY: No cough or expectoration. MEDICATIONS: Reviewed the MAR. PHYSICAL EXAMINATION: VITAL SIGNS: Temperature 97.5, pulse 54, respirations 17, blood pressure 136/72, oxygen saturation 99% on room air. GENERAL: An elderly frail, thin body habitus, low muscle mass. Oral mucosa is moist. She has pacemaker in the left anterior chest wall. ABDOMEN: Soft, thin belly, nondistended, nontender. No mass or hernia. Positive bowel sounds. LABORATORY DATA: WBC 3.87, hemoglobin 9.0 down from 10.2, hematocrit 29, MCV 96, and platelet count 79. Sodium 133, potassium 4.2, chloride 104, bicarb 21. BUN 30, creatinine 1.13. Liver enzymes normal. Chest x-ray, no acute cardiopulmonary abnormalities, so symptomatic bradycardia. IMPRESSION: 1. Overflow diarrhea, secondary to constipation. 2. Cardiac bradyarrhythmia, status post pacemaker placement. PLAN: As recommended yesterday, the patient should be on a daily bowel regimen, recommend to give Metamucil or Benefiber every night. We need to avoid constipation. Rest of the care as per primary team. Deon Bee MD SA/SID /[id number]
[2018-10-24 04:00] VITALS: BP 137/80
--- NOTE | 2018-10-24 04:45 | Operative Report ---
DATE OF PROCEDURE: 10/23/2018 SURGEON: Bladimir Veliz MD PREPROCEDURE DIAGNOSES: 1. Symptomatic bradycardia. 2. Dizziness and syncope. POSTPROCEDURE DIAGNOSES: 1. Symptomatic bradycardia. 2. Dizziness and syncope. ESTIMATED BLOOD LOSS: 5 mL. COMPLICATIONS: None. PROCEDURES PERFORMED: 1. Dual chamber pacemaker placement. 2. Moderate sedation. Moderate conscious sedation was provided under my direct supervision by a sedation trained nurse. Sedation approximate time 30 minutes, Versed. No complications. See report for details. DESCRIPTION OF PROCEDURE: After informed consent was obtained, the patient was brought to the electrophysiology laboratory in a fasting and nonsedated state. Area over her chest was prepped and draped in the usual sterile fashion. Moderate sedation and prophylactic antibiotic were given. Lidocaine 1% was used as local anesthetic and a 3 cm skin incision was made in the left subclavicular area. Electrocautery, sharp and blunt dissection were used to bridge the muscular fascia and a pocket was created for the implantation of the device. Vascular access was obtained x2 in the left axillary vein using modified Seldinger technique under fluoroscopic guidance. Two 6-Yakut sheaths were placed. Ventricular lead to the right ventricular apex, R-wave 7, pacing 0.4. Atrial lead to the right atrial appendage, P-wave 1.8, pacing 0.4. Sheaths were removed from the body. Leads were secured to the fascia using Ethibond. Pocket was irrigated with antibiotic solution using the pulse wood bucker. Hemostasis was meticulous. Leads were connected to the device and the entire pacemaker system placed in the pocket. Incision was closed using absorbable sutures and Dermabond. The patient tolerated the procedure well. The procedure was then completed. SUMMARY OF HARDWARE IMPLANT: The new pacemaker is Medtronic, serial #[id number]. The right ventricular lead is Medtronic, serial #[id number]. The generator is Medtronic, serial #[id number]. IMPRESSION: Successful dual chamber pacemaker implant via left axillary vein. PLAN: 1. Routine postoperative monitoring on telemetry bed. 2. Chest x-ray. 3. Follow up in 2 weeks. Bladimir Veliz MD [facility]/MODL /[id number]
--- NOTE | 2018-10-24 04:55 | Consultation ---
DATE OF CONSULTATION: 10/23/2018 REASON FOR CONSULT: Bradycardia. HISTORY OF PRESENT ILLNESS: This is an 82-year-old woman with history of recurrent syncope, feeling dizzy. She has history of dementia. She was found to have bradycardia with heart rate in the 30s that occasionally drops to the 20s. She is not on any medicine that would explain this, was seen for admission and referred to consider pacemaker. REVIEW OF SYSTEMS: CONSTITUTIONAL: Negative. CARDIOVASCULAR: As per HPI. RESPIRATORY: Negative. GASTROINTESTINAL: Negative. GENITOURINARY: Negative. MUSCULOSKELETAL: Negative. EYES: Negative. ENT: Negative. ALLERGIC/IMMUNOLOGIC: Negative. PSYCHIATRIC: Negative. PAST MEDICAL HISTORY: Hypertension. PAST SURGICAL HISTORY: Negative. FAMILY HISTORY: No premature coronary artery disease. SOCIAL HISTORY: Denies smoking or alcohol. PHYSICAL EXAMINATION: VITAL SIGNS: Blood pressure 190/60, pulse 40, respirations 20, and O2 sats 98%. GENERAL: No acute distress. HEENT: Moist mucous membranes. CARDIOVASCULAR: Irregular. RESPIRATORY: Clear. ABDOMEN: Soft and nontender. MUSCULOSKELETAL: 2+ pulses. NEUROLOGIC: No focal deficits. PSYCHIATRIC: Normal thought process. LABORATORY DATA: EKG sinus bradycardia, PACs. IMPRESSION: 1. Symptomatic bradycardia. 2. Dizziness with history of syncope, no reversible causes. RECOMMENDATIONS: We went over details with family and patient. She has a strong indication for placement, especially seems she remains active. The patient voices understanding and wishes to proceed. Also, family agreeable with the procedure. We will plan for a dual-chamber pacemaker placement. MD RUPINDER Simms/SID /[id number]
[2018-10-24 05:03] LABS: BASOPHILS % 0.5 % (0.0-1.0); EOSINOPHILS # (AUTO) 0.1 (0.0-0.4); EOSINOPHILS % 2.6 % (0.0-6.0); HEMOGLOBIN 10.2 g/dL (12.0-16.0); LYMPHOCYTES % 22.6 % (18.0-39.1); MEAN CORPUSCULAR HEMOGLOBIN 30.2 pg (28-32); MEAN CORPUSCULAR HGB CONC 32.9 g/dL (31-35); MEAN CORPUSCULAR VOLUME 91.7 fL (81-99); MONOCYTES # (AUTO) 0.4 (0.2-0.8); MONOCYTES % 10.1 % (4.4-11.3); NEUTROPHILS # (AUTO) 2.7 (2.1-6.9); NEUTROPHILS % 63.7 % (38.7-80.0); PLATELET COUNT 83 x10e3/uL (140-360); RED BLOOD COUNT 3.38 x10e6/uL (3.6-5.1); RED CELL DISTRIBUTION WIDTH 14.4 % (11.7-14.4)
[2018-10-24 05:17] LABS: ANION GAP 14.5 mmol/L (8-16); CREATININE, SERUM 1.12 mg/dL (0.57-1.11); POTASSIUM 4.5 mmol/L (3.5-5.1)
[2018-10-24 07:46] VITALS: BP 167/79
[2018-10-24] MEDS: INSULIN LISPRO 100 UNIT/1 ML 3ML VIAL SQ SCH ×2 (07:51→11:31)
[2018-10-24 08:27] VITALS: BP 167/79
[2018-10-24] MEDS: GABAPENTIN 100 MG CAP PO SCH (08:39)
[2018-10-24] MEDS: PANTOPRAZOLE SOD 40 MG TABEC PO SCH (08:39)
[2018-10-24] MEDS: CALCIUM CARBONATE 500 MG CHEWABLE TABS PO SCH (08:39)
[2018-10-24] MEDS: ASPIRIN 81 MG ENTERIC COATED PO SCH (08:39)
[2018-10-24] MEDS: CITALOPRAM HYDROBROMIDE 20 MG TAB PO SCH (08:39)
[2018-10-24] MEDS: HYDROCODONE/APAP 5MG-325MG TAB PO PRN (09:16)
[2018-10-24 11:40] VITALS: BP 106/65
--- NOTE | 2018-10-24 14:02 | NUR ---
Nutrition Screen Note RD Recommendation for Physician: Continue diet as ordered Plan of Care: RD following, monitoring for tolerance and adequacy Nutrition reason for involvement: BMI 17.38 Primary Diagnose(s):Bradycardia PMH: HTN, T2DM, GERD, Dementia, anemia osteoporosis Ht:61 in Wt:92lb BMI:17.4 kg/m2 IBW:105lb +/-10% RD Assessment: (10/24/2018) Chart reviewed. Labs and meds reviewed. Initial encounter with patient. 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 Eating 100% of meal trays. Pt with missing teeth, but is able to manage with a regular consistency diet. Offered a texture modification, but daughter refused. Pt denies any nausea, vomiting, diarrhea. No significant wt loss. Although BMI is 17.38. Pt eats very well and muscle loss is consistent with age and current functional status. Pt ambulated with a RW today with PT just prior to visit. Current Diet:1800 ADA Malnutrition Evaluation (10/24/2018) The patient does not meet criteria for a specified degree of malnutrition at this time. Will re-evaluate at follow-up as appropriate. Diet Education Needs Assessment: Diet education not indicated. Nutrition Care Level: Low Signed: Pete Patricia RD, LD, [facility]
--- NOTE | 2018-10-24 14:42 | Progress Note ---
DATE: 10/24/2018 Cardiology Progress Note. SUBJECTIVE: No new complaints. Status post pacemaker implant. OBJECTIVE: VITAL SIGNS: Temperature 97.8, heart rate 79, respiratory rate 17, blood pressure 106/65, O2 saturation 96% on room air. GENERAL: No acute distress, alert. NECK: No JVD. CHEST: Clear to auscultation. CARDIOVASCULAR: Regular rate and rhythm. Normal S1, S2. No S3, no S4. ABDOMEN: Soft, nontender, nondistended. EXTREMITIES: No cyanosis, clubbing, or edema. Pacemaker pocket site covered with dressings. CARDIOVASCULAR MEDICATIONS: Reviewed: 1. Aspirin 81 mg daily. 2. Simvastatin 80 mg at bedtime. LABORATORY DATA: Studies reviewed, white blood cells 4.2, hemoglobin 7.2, platelets 83,000. Sodium 137, potassium 4.5, chloride 105, bicarbonate 22, BUN 27, creatinine 1.12, glucose 64, calcium 9. ASSESSMENT: 1. Symptomatic bradycardia, now status post pacemaker implant. 2. Premature atrial contractions. 3. Dementia. 4. Depression. 5. Osteoporosis. 6. Anemia. 7. Thrombocytopenia. 8. History of fall, suspected syncope. RECOMMENDATIONS: 1. Okay to discharge from a cardiovascular standpoint later this afternoon, once pacemaker interrogation completed. 2. Chest x-ray without any evidence of pneumothorax. 3. Outpatient followup advised in [address] Veliz and in 4-6 weeks in Cardiology office. MD RAJANI Francisco/SID /[id number]
[2018-10-24] MEDS ORDERED: MINOCYCLINE HCL 50 MG CAP PO SCH (16:00)
[2018-10-24] MEDS ORDERED: GABAPENTIN 100 MG CAP PO SCH (16:15)
[2018-10-24] MEDS ORDERED: MINOCYCLINE HCL50 MG PO (16:38)
[2018-10-24 16:45] VITALS: BP 155/78
[2018-10-24] MEDS ORDERED: SENNA-S TABLET PO SCH (17:00)
== END 2018-10-24 17:03 | disposition home or self-care (01) | DRG 244 ==
LOC: ER 10:46 → ERHOLD 12:05 → MED/SURG2 15:52 → OBSVTOIN 10-23 09:41
PROVIDERS: ADMIT Internal Medicine; ATTEND Internal Medicine
PROC: 0JH606Z Insertion of Pacemaker, Dual Chamber into Chest Subcutaneous Tissue and Fascia, Open Approach (ICD-10-PCS; principal; 2018-10-23)
PROC: 02H63JZ Insertion of Pacemaker Lead into Right Atrium, Percutaneous Approach (ICD-10-PCS; 2018-10-23)
PROC: 02HK3JZ Insertion of Pacemaker Lead into Right Ventricle, Percutaneous Approach (ICD-10-PCS; 2018-10-23)
DX: I49.5 Sick sinus syndrome (principal); R00.1 Bradycardia, unspecified; F03.90 Unspecified dementia, unspecified severity, without behavioral disturbance, psychotic disturbance, mood disturbance, and anxiety; M81.0 Age-related osteoporosis without current pathological fracture
CPT/HCPCS: 33208; 36415; 71045; 80048; 80053; 80061; 81001; 82550; 82553; 82607; 82746; 82948; 83540; 84443; 84466; 84484; 85025; 85610; 85730; 87086; 90732; 93005; 93306; 99284; C1769; G0378; J0696; J2001; J2250; J3010; J3370; J7030